=== PATIENT | female | born 1950 | race Caucasian/White ===

== ENCOUNTER → 2017-05-28 | Outpatient (CLI) | payer MEDICARE, OTHER ==
[~2017-05-28] MED LIST: ASPI-496 PO; ATEN25TA PO; B CO1TAB14 PO; CALC1TAB PO; CHOL10003 PO; ESTR10TA PO; MULT-658 PO; MV-M1TAB35 PO; OMEG-172 PO; OMEP-110 PO; VITA1TAB86 PO
== END | disposition home or self-care (01) ==
LOC: CFH 15:07
PROVIDERS: ATTEND Internal Medicine
DX: M79.604 Pain in right leg (principal)

== ENCOUNTER 2018-03-02 17:16 | Emergency (ER) | payer MEDICARE, OTHER ==
[~2018-03-02] VITALS: Ht 172.7 cm; Wt 93.8 kg
[2018-03-02 17:19] VITALS: BP 151/68
== END 2018-03-02 18:30 | disposition home or self-care (01) ==
LOC: ED 18:29
DX: S92.512A Displaced fracture of proximal phalanx of left lesser toe(s), initial encounter for closed fracture (principal); W22.03XA Walked into furniture, initial encounter; Y93.01 Activity, walking, marching and hiking; Y99.8 Other external cause status; Y92.009 Unspecified place in unspecified non-institutional (private) residence as the place of occurrence of the external cause
CPT/HCPCS: 99284